=== PATIENT | female | born 1955 | race Caucasian/White ===

== ENCOUNTER 2022-03-23 06:14 | Day surgery (SDC) | payer MEDICARE, BC ==
[~2022-03-23] VITALS: Ht 159.3 cm; Wt 73.0 kg
[2022-03-23] VITALS (11 sets, daily range): BP systolic 155–178; BP diastolic 75–89
[~2022-03-23 06:14] MED LIST: ACYC-128 PO; ALPR0.255 PO; LIDOcaine 2% (20mg/ml) 5ml vial ONE; PARO20TA6 PO; albumin (Human) 5% 250ml 250 ML IV ONE; ePHEDrine 50MG/ML INJ. ONE; famotidine 20mg tablet PO ONE; fentaNYL /PF 50mcg/ml 5ml ampule ONE; midazolam 1 mg/ML 2ml injection ONE; propofol inj 20 ML IV ONE; ringers solution, lacted 1,000 ML IV SCH; rocuronium 10mg/ml inj IV ONE
[2022-03-23] MEDS ORDERED: oxymetazoline 15 ML nasal spray NS ONE (06:48)
[2022-03-23] MEDS ORDERED: cocaine 4% topical solution 4ml bottle ONE (06:49)
[2022-03-23] MEDS ORDERED: LIDOCAINE 1%/EPI 1:100,000 inj. 10 ML multi-dose vial ONE ×2 (07:01→07:18)
[2022-03-23] MEDS ORDERED: mupirocin 2% ointment 22GM ONE (07:01)
[2022-03-23] MEDS ORDERED: ondansetron/PF 4mg/2ml inj IV PRN (08:00)
[2022-03-23] MEDS ORDERED: proCHLORperazine 10 MG/2 ml inj IV PRN (08:00)
[2022-03-23] MEDS ORDERED: morphine 4 MG/ML inj SYRINge IV PRN (08:00)
[2022-03-23] MEDS ORDERED: morphine 2 MG/ML inj. syringe IV PRN (08:00)
[2022-03-23] MEDS ORDERED: HYDROmorphone/PF 0.2 MG/ML SYRINGE IV PRN ×2 (08:00)
[2022-03-23] MEDS ORDERED: ringers solution, lacted 1,000 ML IV SCH (08:00)
[2022-03-23] MEDS ORDERED: sevoflurane 250ml liquid IH ONE (08:01)
[2022-03-23] MEDS ORDERED: morphine 4 MG/ML inj SYRINge ONE (08:27)
[2022-03-23] MEDS ORDERED: propofol inj 20 ML IV ONE (08:28)
[2022-03-23] MEDS ORDERED: LIDOcaine 2% (20mg/ml) 5ml vial ONE (08:28)
[2022-03-23] MEDS ORDERED: glycopyrrolate 0.2mg/ml inj ONE (08:34)
[2022-03-23] MEDS ORDERED: ondansetron/PF 4mg/2ml inj ONE (08:34)
[2022-03-23] MEDS ORDERED: ePHEDrine 50MG/ML INJ. ONE (08:47)
[2022-03-23] MEDS ORDERED: 0.9 % SODIUM CHLORIDE 10 ML VIAL ONE (08:47)
[2022-03-23] MEDS ORDERED: esmolol inj. 10 ML IV ONE (09:13)
--- NOTE | 2022-03-23 09:17 | NUR ---
Received from OR via kiki, accompanied by Anesthesiologist MARINA and report given by Anesthesiologist. PATIENT WAKING UP, DENIES PAIN, VSS, 20G PIV TO right HAND, BILATERAL COTTONOID DRESSING C/D/I. Addendum: 03/23/22 at 2943 by Annalisa Hagen RN Amended: Links added.
[2022-03-23] MEDS: labetalol 20mg/4ml (5mg/ml) syringe IV PRN ×3 (09:19→09:37)
[2022-03-23] MEDS ORDERED: salt irrigation nasal spray 45 ML SPRAY NS PRN (09:45)
[2022-03-23] MEDS ORDERED: oxymetazoline 15 ML nasal spray NS PRN (09:45)
[2022-03-23] MEDS: hydrALAZINE 20mg/ml inj. IV PRN ×2 (09:46→10:03)
--- NOTE | 2022-03-23 09:52 | NUR ---
NOTIFIED DR RANDHAWA ON THE PHONE; STATES THAT HE WAS UNABLE TO REACH PTS SPOUSE AND THAT HE WILL CONTACT HIM LATER TODAY. ALSO INFORMED REGARDING ELEVATED BP; GAVE THE OKAY TO REMOVE COTTONOIDS. NO ACTIVE BLEEDING FROM NASAL AREA. PT STATES SHE FEELS ANXIOUS. WILL CONTINUE TO ASSESS Addendum: 03/23/22 at 0954 by Annalisa Hagen RN Amended: Links added.
== END 2022-03-23 10:47 | disposition home or self-care (01) ==
LOC: PAS 06:14
PROVIDERS: ATTEND Otolaryngology
DX: J34.2 Deviated nasal septum (principal); J34.3 Hypertrophy of nasal turbinates; Z79.899 Other long term (current) drug therapy; Z98.890 Other specified postprocedural states; Z20.822 Contact with and (suspected) exposure to COVID-19; Z90.710 Acquired absence of both cervix and uterus; M19.90 Unspecified osteoarthritis, unspecified site; G47.30 Sleep apnea, unspecified
CPT/HCPCS: 30140; 30520; 36415; 82948; 87635; 93005; A6402; C9250; C9803; J0360; J2270; J2405; J2704; J3490; J7030; J7040; J7120; P9045; U0003; U0005; Z7506; Z7508; Z7512; 88300; A4618; A6449; A7000; J2250; J3010